=== PATIENT | female | born 1930 | race Caucasian/White ===

== ENCOUNTER 2017-02-01 19:40 | Inpatient (IN) | payer OTHER ==
[~2017-02-01] VITALS: Ht 157.5 cm; Wt 65.3 kg
[2017-02-01 20:49] LABS: HEMATOCRIT 38.6 % (36.0-46.0); MCH 31.6 PG (29.0-34.0); MCHC 33.4 G/DL (30.0-36.0); MCV 94.6 FL (83-99); MEAN PLAT.VOLUME 9.9 uM^3 (9.5-12.4); PLATELET COUNT 296 K/uL (156-360); RBC DIS.WIDTH-CV 12.7 % (11.8-14.6); RBC DIS.WIDTH-SD 44.1 % (39-53); RED BLOOD COUNT 4.08 M/uL (3.80-5.20)
[2017-02-01 20:54] LABS: INTER. NORMALIZED RATIO 1.3; PROTHROMBIN TIME 14.6 SEC (10.2-12.9)
[2017-02-01 20:57] LABS: PTT 29.1 SEC (25-37)
[2017-02-01 20:58] LABS: CHLORIDE 105 mEq/L (99-109); POTASSIUM 3.8 mEq/L (3.7-5.4); SODIUM 142 mEq/L (136-147)
[2017-02-01 21:00] LABS: GLUCOSE 131 mg/dL (70-99)
[2017-02-01 21:02] LABS: ANION GAP 17 MEQ/L (2-14); TOTAL BILIRUBIN 0.9 mg/dL (0.0-1.0)
[2017-02-01 21:04] LABS: ALKALINE PHOSPHATASE 43 IU/L (3-129); GFR ESTIMATE (CALCULATED) 55 mL/min/
[2017-02-01 21:05] LABS: UREA NITROGEN (BUN) 30 mg/dL (9-23)
[2017-02-01 21:07] LABS: CREATINE KINASE 405 IU/L (1-294); TOTAL CK 405 IU/L (1-294)
[2017-02-01 21:13] LABS: CK-MB 1.4 ng/mL (0.0-4.9)
[2017-02-01 21:47] LABS: ABS NEUTROPHIL COUNT 7.3; ANISOCYTOSIS 1+; ATYPICAL LYMPHOCYTE 3.5 %; BAND NEUTROPHILS 50.4 % (0-8.0); EOSINOPHIL ABS CT 0; INSTRUMENT ABS NEUTROPHIL CT 7.6 K/uL; LYMPHOCYTES 2.6 % (15.0-45.0); METAMYELOCYTES 4.4 %; PLAT.SUFFICIENCY ADEQUATE; SEG.NEUTROPHILS 30.4 % (46.0-76.0)
[2017-02-01] MEDS ORDERED: LISINOPRIL10 MG PO (23:09)
[2017-02-01] MEDS ORDERED: LANSOPRAZOLE30 MG PO (23:10)
[2017-02-01] MEDS ORDERED: ATORVASTATIN CA40 MG PO (23:11)
[2017-02-01] MEDS ORDERED: PREDNISONE1 MG PO (23:12)
[2017-02-01] MEDS ORDERED: LIDODERM 5% P1 PATCH TD (23:13)
[2017-02-01] MEDS ORDERED: LO-DOSE ASPIRIN81 M2 PO (23:14)
[2017-02-01] MEDS ORDERED: ASCORBIC ACID100 MG PO (23:15)
[2017-02-01] MEDS ORDERED: VITAMIN D31000 UNI2 PO (23:15)
[2017-02-01] MEDS ORDERED: FOLIC ACID0.4 MG PO (23:16)
[2017-02-02] VITALS (8 sets, daily range): BP systolic 97–124; BP diastolic 50–72
[2017-02-02] LABS: TROP-I INTERPRETATION NEGATIVE; TROPONIN-I 0.06 ng/mL (0.0-0.30)
[2017-02-02 04:44] LABS: HEMATOCRIT 33.1 % (36.0-46.0); MCH 32.2 PG (29.0-34.0); MCHC 34.1 G/DL (30.0-36.0); MCV 94.3 FL (83-99); PLATELET COUNT 240 K/uL (156-360); RBC DIS.WIDTH-SD 44.5 % (39-53); RED BLOOD COUNT 3.51 M/uL (3.80-5.20)
[2017-02-02 04:54] LABS: CHLORIDE 104 mEq/L (99-109); POTASSIUM 3.3 mEq/L (3.7-5.4); SODIUM 138 mEq/L (136-147)
[2017-02-02 04:57] LABS: GLUCOSE 104 mg/dL (70-99)
[2017-02-02 04:58] LABS: ANION GAP 15 MEQ/L (2-14)
[2017-02-02 05:00] LABS: ALKALINE PHOSPHATASE 36 IU/L (3-129)
[2017-02-02 05:01] LABS: GFR ESTIMATE (CALCULATED) > 59 mL/min/
[2017-02-02 05:02] LABS: UREA NITROGEN (BUN) 27 mg/dL (9-23)
[2017-02-02 05:08] LABS: TROP-I INTERPRETATION NEGATIVE; TROPONIN-I 0.06 ng/mL (0.0-0.30)
[2017-02-02 05:21] LABS: ADD MIUA? YES; BILIRUBIN NEGATIVE; BLOOD MODERATE; COLOR YELLOW ((YELLOW)); GLUCOSE (STRIP) NEGATIVE; KETONES 5; LEUKOCYTES SMALL; NITRITE POSITIVE; PROTEIN (STRIP) NEGATIVE; SPECIFIC GRAVITY 1.017 (1.000-1.030); UROBILINOGEN 0.2 MG/DL (0.2-1.0)
[2017-02-02 06:16] LABS: BACTERIA 3+ /HPF; EPITHELIAL CELLS RARE /HPF; MUCUS 2+ /LPF; RED BLOOD CELLS 0-5 /HPF (0-5); UCUL ADDED? YES; WHITE BLOOD CELLS 20-30 /HPF (0-5); WHITE BLOOD CELLS CLUMP RARE /HPF (0-5)
[2017-02-02 10:28] LABS: MAGNESIUM 1.5 mg/dL (1.3-2.7)
[2017-02-02 10:38] LABS: CREATINE KINASE 3274 IU/L (1-294)
[2017-02-02 11:05] LABS: TROP-I INTERPRETATION NEGATIVE; TROPONIN-I 0.05 ng/mL (0.0-0.30)
[2017-02-02 18:42] LABS: INTERNAL CONTROL VALID? YES
[2017-02-02 19:15] LABS: C DIFF TOXIN NEGATIVE (NEGATIVE)
[2017-02-02 19:16] LABS: PROBE CHECK PASS; SPECIMEN PROCESSING CONTROL PASS
[2017-02-03 00:45] VITALS: BP 99/48
[2017-02-03 06:22] LABS: MCH 32.2 PG (29.0-34.0); MCHC 32.6 G/DL (30.0-36.0); MEAN PLAT.VOLUME 10.2 uM^3 (9.5-12.4); PLATELET COUNT 176 K/uL (156-360); RBC DIS.WIDTH-SD 46.5 % (39-53); WHITE BLOOD COUNT 8.3 K/uL (4.1-10.2)
[2017-02-03 06:23] LABS: MCV 98.9 FL (83-99); RED BLOOD COUNT 2.73 M/uL (3.80-5.20)
[2017-02-03 06:26] LABS: ANION GAP 7 MEQ/L (2-14); CHLORIDE 115 MEQ/L (99-109); GFR ESTIMATE (CALCULATED) > 59 mL/min/; POTASSIUM 3.8 MEQ/L (3.7-5.4); SAMPLE HEMOLYSIS CHECK 0; SAMPLE ICTERIC CHECK 0; SAMPLE LIPEMIA CHECK 0; SODIUM 142 MEQ/L (136-147); UREA NITROGEN (BUN) 15 mg/dL (9-23)
[2017-02-03 06:51] LABS: GLUCOSE 68 mg/dL (70-99)
[2017-02-03 08:00] VITALS: BP 130/68
[2017-02-03 08:04] LABS: CREATINE KINASE 2782 IU/L (1-294)
[2017-02-03 12:00] VITALS: BP 128/62
[2017-02-03 16:00] VITALS: BP 135/90
[2017-02-03 20:07] VITALS: BP 139/62
[2017-02-04] VITALS (7 sets, daily range): BP systolic 123–142; BP diastolic 60–82
[2017-02-04 05:46] LABS: HEMATOCRIT 28.8 % (36.0-46.0); MCH 32.3 PG (29.0-34.0); MEAN PLAT.VOLUME 10.3 uM^3 (9.5-12.4); PLATELET COUNT 204 K/uL (156-360); RBC DIS.WIDTH-CV 12.7 % (11.8-14.6); RBC DIS.WIDTH-SD 45.5 % (39-53); RED BLOOD COUNT 2.94 M/uL (3.80-5.20); WHITE BLOOD COUNT 10.9 K/uL (4.1-10.2)
[2017-02-04 06:16] LABS: ANION GAP 12 MEQ/L (2-14); CHLORIDE 113 MEQ/L (99-109); GFR ESTIMATE (CALCULATED) > 59 mL/min/; GLUCOSE 69 mg/dL (70-99); POTASSIUM 3.5 MEQ/L (3.7-5.4); SAMPLE HEMOLYSIS CHECK 0; SAMPLE ICTERIC CHECK 0; SAMPLE LIPEMIA CHECK 0; SODIUM 142 MEQ/L (136-147); UREA NITROGEN (BUN) 13 mg/dL (9-23)
[2017-02-04 06:18] LABS: CREATINE KINASE 1031 IU/L (1-294)
[2017-02-04 09:49] LABS: MAGNESIUM 1.8 mg/dl (1.3-2.7)
[2017-02-05 02:30] VITALS: BP 146/67
[2017-02-05 02:36] VITALS: BP 131/60
[2017-02-05 05:42] LABS: HEMATOCRIT 27.9 % (36.0-46.0); MCH 31.5 PG (29.0-34.0); MCHC 33.3 G/DL (30.0-36.0); MCV 94.6 FL (83-99); MEAN PLAT.VOLUME 10.1 uM^3 (9.5-12.4); PLATELET COUNT 217 K/uL (156-360); RBC DIS.WIDTH-CV 12.5 % (11.8-14.6); RBC DIS.WIDTH-SD 43.6 % (39-53); RED BLOOD COUNT 2.95 M/uL (3.80-5.20); WHITE BLOOD COUNT 8.7 K/uL (4.1-10.2)
[2017-02-05 06:19] LABS: ANION GAP 10 MEQ/L (2-14); CHLORIDE 108 MEQ/L (99-109); CREATINE KINASE 358 IU/L (1-294); GFR ESTIMATE (CALCULATED) > 59 mL/min/; POTASSIUM 3.5 MEQ/L (3.7-5.4); SAMPLE HEMOLYSIS CHECK 0; SAMPLE ICTERIC CHECK 0; SAMPLE LIPEMIA CHECK 0; SODIUM 141 MEQ/L (136-147); UREA NITROGEN (BUN) 7 mg/dL (9-23)
[2017-02-05 06:20] LABS: GLUCOSE 94 mg/dL (70-99)
[2017-02-05 07:37] LABS: INTERNAL CONTROL VALID? YES
[2017-02-05 08:44] VITALS: BP 157/65
[2017-02-05] MEDS ORDERED: ACIDOPHILUS LA1 EACH PO (10:50)
[2017-02-05] MEDS ORDERED: CEFDINIR300 MG PO (10:50)
[2017-02-05] MEDS ORDERED: AZITHROMYCIN500 M1 PO (10:50)
[2017-02-05] MEDS ORDERED: METRONIDAZOLE500 MG PO (10:50)
[2017-02-05 12:06] VITALS: BP 155/68
[2017-02-05 16:45] VITALS: BP 138/63
[2017-02-05 20:00] VITALS: BP 145/65
[2017-02-06 00:24] VITALS: BP 142/74
[2017-02-06 04:15] VITALS: BP 138/64
[2017-02-06 08:00] VITALS: BP 173/72
[2017-02-06 12:03] VITALS: BP 136/63
[2017-02-06] MEDS ORDERED: CEFDINIR300 MG PO (13:32)
[2017-02-06] MEDS ORDERED: GUAIFENESI100 MG/5 M PO (13:33)
[2017-02-06] MEDS ORDERED: DUONEB 2.5-0.5 M3 ML AEROSOL (13:33)
== END 2017-02-06 17:48 | DRG 682 ==
LOC: EME 19:40 → 4EAST 22:56 → EDOF 22:56 → ENRESERV 22:57 → 4EAST 02-02 01:08
PROVIDERS: Emergency Medicine; Hospitalist; Internal Medicine
DX: N17.9 Acute kidney failure, unspecified (principal); M62.82 Rhabdomyolysis; A41.9 Sepsis, unspecified organism; N39.0 Urinary tract infection, site not specified; B96.20 Unspecified Escherichia coli [E. coli] as the cause of diseases classified elsewhere; J18.9 Pneumonia, unspecified organism; J96.01 Acute respiratory failure with hypoxia; E87.6 Hypokalemia; E83.51 Hypocalcemia; E86.0 Dehydration; I95.9 Hypotension, unspecified; I10 Essential (primary) hypertension; D64.9 Anemia, unspecified; R00.0 Tachycardia, unspecified; R73.9 Hyperglycemia, unspecified; S00.83XA Contusion of other part of head, initial encounter; W01.0XXA Fall on same level from slipping, tripping and stumbling without subsequent striking against object, initial encounter; Y92.009 Unspecified place in unspecified non-institutional (private) residence as the place of occurrence of the external cause; E78.00 Pure hypercholesterolemia, unspecified; E27.40 Unspecified adrenocortical insufficiency; K21.9 Gastro-esophageal reflux disease without esophagitis; H26.9 Unspecified cataract; M19.90 Unspecified osteoarthritis, unspecified site; Z85.828 Personal history of other malignant neoplasm of skin
CPT/HCPCS: 36415; 70450; 71010; 80048; 80053; 80076; 81003; 82310; 82550; 82553; 82565; 83605; 83630; 83735; 84484; 85025; 85027; 85610; 85651; 85730; 86140; 87040; 87070; 87077; 87086; 87177; 87186; 87205; 87449; 87493; 93005; 94640; 94640 76; 94760; 94799; 97530 GO; 99202; 99281; 99285; J0610; J0696; J1644; J2405; J7030; J7050; J7120; J7512